=== PATIENT | female | born 1995 ===

== ENCOUNTER 2017-04-14 06:36 | Observation (INO) | payer OTHER ==
[2017-04-14 06:47] VITALS: RESP 16; TEMP 97.3
[2017-04-14] MEDS ORDERED: Sodium Chloride 0.9% 1,000 ML IV ONE (07:20)
--- NOTE | 2017-04-14 07:35 | C.PDOC ---
History Of Present Illness 21 yo female w/o significant PMHx come in for evaluation of diffuse lower abdominal pain for past week. Pt reports, pain is constant, aching, relieved with Ibuprofen, no change in appetite or change in pain with food intake. Otherwise, pt denies fever, chills, dizziness, CP, SOB, cough, N/V/D, or constipation, denies UTI sx, back pain. Last menstrual period was 04/07/17. Ambulate to ED for evaluation, not in any apparent distress. Time Seen by Provider: 04/14/17 07:14 Chief Complaint (Nursing): Abdominal Pain History Per: Patient Past Medical History Reviewed: Historical Data, Nursing Documentation, Vital Signs Vital Signs: Last Vital Signs Temp 97.3 F L 04/14/17 06:44 Pulse 66 04/14/17 09:53 Resp 16 04/14/17 09:53 BP 109/65 04/14/17 09:53 Pulse Ox 99 04/14/17 11:37 - Medical History PMH: No Chronic Diseases Surgical History: No Surg Hx Family History: States: No Known Family Hx - Social History Hx Alcohol Use: No Hx Substance Use: No - Immunization History Hx Tetanus Toxoid Vaccination: No Hx Influenza Vaccination: No Hx Pneumococcal Vaccination: No Review Of Systems Except As Marked, All Systems Reviewed And Found Negative. Constitutional: Negative for: Fever, Chills ENT: Negative for: Throat Pain Cardiovascular: Negative for: Chest Pain, Light Headedness Respiratory: Negative for: Cough, Shortness of Breath Gastrointestinal: Positive for: Abdominal Pain. Negative for: Nausea, Vomiting , Diarrhea, Constipation, Melena, Hematochezia, Hematemesis Genitourinary: Negative for: Dysuria, Frequency, Vaginal Discharge, Vaginal Bleeding Musculoskeletal: Negative for: Back Pain Skin: Negative for: Rash Neurological: Negative for: Weakness, Numbness, Dizziness Physical Exam - Physical Exam Appears: Well, Non-toxic, No Acute Distress Skin: Normal Color, Warm, Dry, No Rash Eye(s): bilateral: PERRL Nose: Normal Throat: No Exudate, No Drooling Neck: Supple Cardiovascular: Rhythm Regular Respiratory: No Stridor, No Wheezing Gastrointestinal/Abdominal: Soft, Tenderness (mild diffuse lower abodminal tenderness.), No Distention, No Guarding, No Rebound Back: No CVA Tenderness Extremity: No Pedal Edema Neurological/Psych: Oriented x3, Normal Speech ED Course And Treatment - Laboratory Results Result Diagrams: 04/14/17 07:46 04/14/17 07:46 O2 Sat by Pulse Oximetry: 99 - CT Scan/US Abd & pelvis CT Other Rad Studies (CT/US): Read By Radiologist, Radiology Report Reviewed CT/US Interpretation: FINDINGS: LOWER THORAX: There is a trace left pleural effusion of uncertain etiology. LIVER: Unremarkable. No gross lesion or ductal dilatation. GALLBLADDER AND BILE DUCTS: Unremarkable. PANCREAS: Unremarkable. No gross lesion or ductal dilatation. SPLEEN: Unremarkable. ADRENALS: Unremarkable. No mass. KIDNEYS AND URETERS: Unremarkable. No hydronephrosis. No solid mass. VASCULATURE: Unremarkable. No aortic aneurysm. BOWEL: Unremarkable. No obstruction. No gross mural thickening. APPENDIX: Normal appendix. PERITONEUM: Unremarkable. No free fluid. No free air. LYMPH NODES: Unremarkable. No enlarged lymph nodes. BLADDER: Unremarkable. REPRODUCTIVE: Unremarkable. BONES: No acute fracture. OTHER FINDINGS: None. IMPRESSION: Trace left pleural effusions of uncertain etiology. No CT evidence of acute pathology in the abdomen and pelvis. ED OBSERVATION Discharge: Yes Date of observation admission: 04/14/17 Time of observation admission: 07:25 - Observation admission statement Patient is being placed in observation because:: Abdominal pain - Goals of Observation Goals of observation are:: Diagnostics, imaging, sx tx, re-evaluation - Progress Note Progress Note: 04/14/17 At 9:30, blood work review, mild leukocytosis with left shift, no bandemia, Chemistry- normal study. Hydration with IVF, analgesics given. At 10:28, pt return from CT abd/ pelvis. Pt appears comfortable, not in any apparent distress. Afebrile, hemodynamicaly stable. Non-toxic. Abd: benign, (-) guarding, (-) rebound. back: (-) CVA tenderness. UA results review and c/w UTI. Ucx- sent to lab. Rocephin order. At 11:35, pt appears improved, afebrile, hemodynamicaly stable. Pt reports. ' feels better". ENT: no acute findings neck: Supple. Abd: benign. Back: (-) CVA tenderness. CT abd/pelvis results review and appears without acute abnormalities. Results review and discussed with Pt and family. Pt advised on course of ds. ref. to f/u with PMD in 2-3 days for re-eval. return to ED if any worsening or new changes. Disposition Counseled Patient/Family Regarding: Studies Performed, Diagnosis, Need For Followup, Rx Given - Disposition Disposition: HOME/ ROUTINE Disposition Time: 11:37 Condition: STABLE - Clinical Impression Clinical Impression: UTI (urinary tract infection)
[2017-04-14 07:50] LABS: BASO % 0.3 % (0.0-2.0); EOS # 0.1 K/uL (0.0-0.7); EOS % 0.6 % (0.0-4.0); LYMPH # 2.1 K/uL (1.0-4.3); LYMPH % 16.2 % (20.0-40.0); MEAN CELL VOLUME 85.6 fL (81.0-99.0); MEAN CORPUSCULAR HEMOGLOBIN 30.1 pg (27.0-31.0); MEAN CORPUSCULAR HGB CONC 35.2 g/dL (33.0-37.0); MEAN PLATELET VOLUME 7.5 fL (7.2-11.7); MONO # 0.8 K/uL (0.0-0.8); MONO % 6.2 % (0.0-10.0); NRBC % 0.1 % (0.0-2.0); RED CELL DISTRIBUTION WIDTH 13.4 % (11.5-14.5); WHITE BLOOD COUNT 13.2 K/uL (4.8-10.8)
[2017-04-14 08:03] LABS: CHLORIDE 102 mmol/L (98-107); POTASSIUM 3.8 mmol/L (3.6-5.2); SODIUM 139 mmol/L (132-148)
[2017-04-14 08:04] LABS: RBC URINE 16 /hpf (0-3); URINE BACTERIA RARE (<OCC); URINE BILIRUBIN NEGATIVE (NEGATIVE); URINE BLOOD 2+ (NEGATIVE); URINE COLOR Yellow (YELLOW); URINE GLUCOSE (UA) NORMAL (Normal); URINE KETONE NEGATIVE (NEGATIVE); URINE LEUKOCYTE ESTERASE 2+ Leu/uL (Negative); URINE PROTEIN NEGATIVE (NEGATIVE); WBC URINE 20 /hpf (0-5)
[2017-04-14 08:06] LABS: CARBON DIOXIDE 25 mmol/L (22-30); GFR AFRICAN-AMERICAN > 60
[2017-04-14 08:07] LABS: BLOOD UREA NITROGEN 9 mg/dL (7-17); CALCIUM 9.5 mg/dl (8.6-10.4); GLUCOSE,RANDOM 105 mg/dL (65-105)
[2017-04-14] MEDS ORDERED: Iodixanol 320 MG/ML 100 ML BOTTLE IV ONE (09:38)
[2017-04-14] MEDS ORDERED: cefTRIAXone IV 1 gm in Dextros 50 ML IVPB ONE (10:33)
--- NOTE | 2017-04-14 10:41 | CT ---
PROCEDURE: CT Abdomen and Pelvis with contrast HISTORY: LLQ pain COMPARISON: None. TECHNIQUE: Contrast dose: 95 mL of Visipaque 320. Axial and reformatted coronal and sagittal CT images of the abdomen and pelvis were obtained after IV contrast administration. Radiation dose: Total exam DLP = 519.6 mGy-cm. This CT exam was performed using one or more of the following dose reduction techniques: Automated exposure control, adjustment of the mA and/or kV according to patient size, and/or use of iterative reconstruction technique. FINDINGS: LOWER THORAX: There is a trace left pleural effusion of uncertain etiology. LIVER: Unremarkable. No gross lesion or ductal dilatation. GALLBLADDER AND BILE DUCTS: Unremarkable. PANCREAS: Unremarkable. No gross lesion or ductal dilatation. SPLEEN: Unremarkable. ADRENALS: Unremarkable. No mass. KIDNEYS AND URETERS: Unremarkable. No hydronephrosis. No solid mass. VASCULATURE: Unremarkable. No aortic aneurysm. BOWEL: Unremarkable. No obstruction. No gross mural thickening. APPENDIX: Normal appendix. PERITONEUM: Unremarkable. No free fluid. No free air. LYMPH NODES: Unremarkable. No enlarged lymph nodes. BLADDER: Unremarkable. REPRODUCTIVE: Unremarkable. BONES: No acute fracture. OTHER FINDINGS: None. IMPRESSION: Trace left pleural effusions of uncertain etiology. No CT evidence of acute pathology in the abdomen and pelvis.
[2017-04-14 12:03] VITALS: BP 105/63; PULSE 78; O2SAT 100
== END 2017-04-14 11:37 | disposition home or self-care (01) ==
LOC: C.ER 06:36 → C.9OBSV 07:25
PROVIDERS: ADMIT Emergency Medicine; ATTEND Emergency Medicine
DX: N39.0 Urinary tract infection, site not specified (principal)
CPT/HCPCS: 74177; 80048; 81001; 85025; 87086; 96361; 96365; 96375; 99285; G0378; J1885; J7040; Q9967

== ENCOUNTER 2017-05-15 07:37 | Day surgery (SDC) | payer OTHER ==
[2017-05-15 08:00] VITALS: BMI 30.2
[2017-05-15 08:28] VITALS: O2SAT 100
[2017-05-15] MEDS ORDERED: Pantoprazole 40 mg EC Tab PO ONE (09:57)
[2017-05-15] MEDS ORDERED: Lactated Ringer's 500 ML IV ONE (09:57)
--- NOTE | 2017-05-15 09:57 | CP.SDSHP ---
Same Day Surgery H & P - History Proposed Procedure: egd Pre-Op Diagnosis: epigastric pain. heartburn refractory to therapy - Previous Medical/Surgical History Misc: Anemia Pain: 2.Mild Pain Previous Surgical History: denies - Allergies Allergies: Allergies No Known Allergies Allergy (Verified 05/15/17 08:27) - Physical Exam Vital Signs: Vital Signs 05/15/17 08:18 Temperature 98 F Pulse Rate 85 Respiratory 20 Rate Blood Pressure 122/76 O2 Sat by Pulse 100 Oximetry Mental Status: Alert & Oriented x3 Neuro: WNL Heart: WNL Lungs: WNL GI: WNL - Impression Impression: epigastric pain. heartburn refractory to therapy Pt. Evaluated Today:Candidate for Anesthesia & Procedure: Yes - Date & Time Date: 05/15/17 Time: 09:57 Short Stay Discharge - Short Stay Discharge Admitting Diagnosis/Reason for Visit: EPIGASTRIC PAIN, HEARTBURN Disposition: HOME/ ROUTINE
[2017-05-15] MEDS ORDERED: Propofol 10 mg/ml Inj (20 ML) ONE ×2 (09:59)
[2017-05-15 12:49] VITALS: TEMP 98.4
[2017-05-15 12:51] VITALS: RESP 15
[2017-05-15 14:29] VITALS: BP 106/60; PULSE 68
== END 2017-05-15 11:41 | disposition home or self-care (01) ==
LOC: C.ENDO 07:37
PROVIDERS: ATTEND Internal Medicine Gastroenterology
DX: K29.70 Gastritis, unspecified, without bleeding (principal); D50.9 Iron deficiency anemia, unspecified; K44.9 Diaphragmatic hernia without obstruction or gangrene; K21.9 Gastro-esophageal reflux disease without esophagitis
CPT/HCPCS: 43239; 84703; 88305; 88312; 88342; J2001; J2704; J7120